=== PATIENT | male | born 1985 | race Two or more races ===

== ENCOUNTER → 2017-01-27 | Outpatient (CLI) | payer OTHER ==
[~2017-01-27] MED LIST: HYDR25TA11 PO; ZOLP10TA PO
[2017-01-27 09:08] LABS: ASPARTATE AMINO TRANSFERASE 37 U/L (15-37); BLOOD UREA NITROGEN 17 mg/dL (7-18)
== END | disposition home or self-care (01) ==
LOC: LAB 08:34
PROVIDERS: ATTEND Physician Assistant
DX: E78.5 Hyperlipidemia, unspecified (principal); E66.9 Obesity, unspecified; I10 Essential (primary) hypertension
CPT/HCPCS: 36415; 80053; 80061; 84439; 84443; 85025